=== PATIENT | female | born 1935 | race Asian ===

== ENCOUNTER 2021-06-20 10:24 | Emergency (ER) | payer MEDICARE, OTHER ==
[~2021-06-20] VITALS: Ht 157.5 cm; Wt 61.2 kg
[2021-06-20 10:33] VITALS: BP 137/36
--- NOTE | 2021-06-20 12:13 | NUR ---
PATIENT W/C ASSISTED TO BED 11.
--- NOTE | 2021-06-20 12:24 | NUR ---
85 Y/O F PATIENT PRESENTS TO ED WITH C/O REDNESS, EDEMA AND R FACIAL PAIN THAT STARTED THIS MORNING. PT STATES SHE HAS PAIN WITH PALPATION, DENIES DYSURIA, HEMATURIA, ANY NEW ALLERGIES OR NEW FOODS/PRODUCTS, BLURRY VISION, DOUBLE VISION, LOSS OF VISION. PERRLA 3MM, EYE SCELRA IS WHITE, CONJUNCTIVA PINK, NO DISCHARGE. DENIES N/V/D; SKIN IS PINK/WARM/DRY, REDNESS ON R SIDE OF FACE AND NECK; AAOX4 WITH EVEN AND STEADY GAIT; LUNGS CLEAR BL; HR EVEN AND REGULAR; PT DENIES ANY FEVER, CP, SOB, OR COUGH AT THIS TIME; PATIENT STATES PAIN OF 5/10 AT THIS TIME; VSS; PATIENT POSITIONED FOR COMFORT; HOB ELEVATED; BEDRAILS UP X2; BED DOWN. ER MD MADE AWARE OF PT STATUS. PMH: DENIES NKA MED: DENIES
[2021-06-20] MEDS ORDERED: AMPICILLIN/SULBACTAM 3 GM VIAL IV ONE (13:10)
[2021-06-20] MEDS ORDERED: WATER STERILE 10 ML MC ONE (13:28)
[2021-06-20 13:38] LABS: HEMATOCRIT 23.7 % (36-48); HEMOGLOBIN 7.3 g/dL (12.0-16.0); MEAN CORPUSCULAR HEMOGLOBIN 20 pg (27-31); MEAN CORPUSCULAR HGB CONC 31 g/dL (33-37); MEAN CORPUSCULAR VOLUME 65.8 fL (80-94); PLATELET COUNT (AUTO) 238 K/uL (140-450); RED CELL DISTRIBUTION WIDTH 19.7 % (11.6-13.7); WHITE BLOOD COUNT (AUTO) 24.8 K/uL (4.8-10.8)
[2021-06-20 13:49] LABS: ALBUMIN 3.1 g/dL (3.4-5.0); ANION GAP 13.6 (8-16); ASPARTATE AMINOTRANSFERASE 33 U/L (15-37); CARBON DIOXIDE 24.5 mmol/L (21-32); CHLORIDE 92 mmol/L (98-107); CREATININE 0.8 mg/dL (0.6-1.3); GLUCOSE 95 mg/dL (74-106); POTASSIUM 3.1 mmol/L (3.5-5.1); SODIUM SERUM 127 mmol/L (136-145); UREA NITROGEN, BLOOD 14 mg/dL (7-18)
[2021-06-20 13:55] LABS: LYMPHOCYTES % (MANUAL) 1 % (20-46); MONOCYTES % (MANUAL) 4 % (5-12)
--- NOTE | 2021-06-20 14:22 | NUR ---
PT WALKED TO LOBBY WITH SON, PT WAS INFORMED SHE NEEDS TO REMAIN IN ROOM UNTIL DISCHARGE OR TRANSFER. PT WITH SON IN ROOM 11 AT THIS TIME.
[2021-06-20] MEDS ORDERED: POTASSIUM CHLORIDE 10 MEQ TABER PO ONE (14:35)
[2021-06-20] MEDS ORDERED: NACL 0.9% 1,000 ML IV ONE (14:35)
--- NOTE | 2021-06-20 14:47 | NUR ---
PT REFUSING CT AND WOULD LIKE TO SPEAK WITH ERMD TO LEAVE AMA. SON AT BEDSIDE AWARE OF SITUATION.
--- NOTE | 2021-06-20 15:24 | NUR ---
CT CONSENT SIGNED AT THIS TIME.
--- NOTE | 2021-06-20 15:38 | NUR ---
PT TAKEN TO CT VIA WHEELCHAIR AT THIS TIME.
--- NOTE | 2021-06-20 15:57 | NUR ---
PT TAKEN TO ER BED 11 VIA W/C.
[2021-06-20] MEDS ORDERED: DEXAMETHASONE 10 MG/ML VIAL ONE (16:27)
--- NOTE | 2021-06-20 16:29 | NUR ---
ERMD MADE AWARE THAT PT WAS TACHYCARDIC AT 144 AND FACIAL EDEMA WAS WORSENING. ERMD AT BEDSIDE.
[2021-06-20] MEDS ORDERED: DEXAMETHASONE 10 MG/ML VIAL IVP ONE (16:30)
[2021-06-20] MEDS ORDERED: INTUBATION KIT MC ONE (16:33)
[2021-06-20] MEDS ORDERED: ETHYL CHLORIDE 105 ML SPR TP ONE ×2 (16:44→16:45)
[2021-06-20] MEDS ORDERED: KETAMINE 500 MG/5 ML VIAL IVP ONE (16:50)
[2021-06-20] MEDS ORDERED: KETAMINE 10 MG/ML UD SYR **ER IVP ONE (16:52)
[2021-06-20] MEDS ORDERED: LIDOCAINE 4% 40 MG/ML BTL TP ONE (16:55)
[2021-06-20] MEDS: LIDOCAINE 4% 40 MG/ML BTL TP SCH ×2 (17:00→17:55)
--- NOTE | 2021-06-20 17:00 | NUR ---
PT STATES SHE DOES NOT WANT TO SIGN CONSENT UNTIL ERMD SPEAKS WITH HER ABOUT PROCEDURE. ERMD EXPLAINED PROCEDURE TO PT, PT IS REQUESTING TO AMBULATE TO BATHROOM BEBFORE PROCEDURE. PT WAS EXPLAINED THAT SHE IS UNABLE TO AMBULATE DUE TO OXYGEN DROPPING AT THIS TIME AND NEEDING CARDIAC MONITORING DUE TO INCREASE IN PULSE FROM 100 TO 140. PT REFUSING TO USE BEDPAN OR URINE CATHETER. ERMD EXPLAINING TO PT RISKS AND BENEFITS TO PRCOEDURE AND URGENT TIMING AT THIS TIME. PT IS REFUSING TX AT THIS TIME WITH SON AT BEDSIDE.
--- NOTE | 2021-06-20 17:29 | NUR ---
PT REFUSING TREATMENT AT THIS TIME. ER PHYSICIAN BEDSIDE AND AWARE OF REFUSAL.
--- NOTE | 2021-06-20 17:30 | NUR ---
EMRD STILL IN ROOM AT THIS TIME DISCUSSING IMPORTANCE OF PROCEDURE.
--- NOTE | 2021-06-20 17:45 | NUR ---
PT IS REQUESTING TO LEAVE, REFUSING TO SIGN AMA FORM AT THIS TIME. EMELIAD AWARE.
[2021-06-20] MEDS ORDERED: AMOX-999 PO (17:46)
--- NOTE | 2021-06-20 17:52 | NUR ---
Patient discharged with v/s NOT STABLE, LEAVING AMA, REFUSING TO SIGN AMA AT THIS TIME. Written and verbal after care instructions given and explained. Patient alert, oriented and verbalized understanding of instructions. Ambulatory with SON to car WITH CANE. All questions addressed prior to discharge. ID band removed. Patient advised to follow up with PMD OR CALL 911 IF SYMTPOMS WORSEN. Rx of AMOXICILLIN/POTASSIUM CLAV given. Patient educated on indication of medication including possible reaction and side effects. Opportunity to ask questions provided and answered.
[2021-06-20 17:54] VITALS: BP 134/116
== END 2021-06-20 17:52 | disposition left against medical advice (07) ==
LOC: MED 10:24
DX: A41.9 Sepsis, unspecified organism (principal); K12.2 Cellulitis and abscess of mouth; K04.7 Periapical abscess without sinus; E87.6 Hypokalemia; E87.1 Hypo-osmolality and hyponatremia; Z79.2 Long term (current) use of antibiotics
CPT/HCPCS: 36415; 70491; 80053; 83605; 85025; 87040; 96361; 96374; 96375; 99291; J0295; J1100; J7030; Q9967